=== PATIENT | male | born 1990 | race Caucasian/White ===

== ENCOUNTER 2019-04-02 01:26 | Emergency (ER) | payer BC ==
[2019-04-02 01:51] VITALS: TEMP 98.5; BMI 28.8
[2019-04-02] MEDS ORDERED: DIPHTH,PERTUSS(ACELL),TET 0.5 ML DISP.SYRIN IM ONE (02:09)
--- NOTE | 2019-04-02 02:09 | PDOC ---
History of Present Illness - General Chief Complaint: Laceration Stated Complaint: HAD WENT THROUGH WINDOW History Source: Patient Exam Limitations: No Limitations - History of Present Illness Initial Comments: HPI: 28 y/o male presenting to [facility] ER complaining of heavy bleeding from a laceration to this left thumb. Pt sustained the injury several hours prior to arrival when he punched a glass window while intoxicated. Denies loss of sensation or difficulty moving the thumb. Attempted to control bleeding with direct pressure, but was not successful in stopping the hemorrhage. Does not recall his last tetanus booster. Social Hx: - EtOH: Intoxication this evening - Tobacco: Denies - Street Drugs: Denies Medical Hx: - Denies past medical history. Denies prescription medications. Review of Systems: In addition to that documented in the HPI above, the additional ROS was obtained : Constitutional- Denies fevers or chills ENMT- Denies sore throat CV- Denies chest pain Resp- Denies SOB GI- Denies vomiting or diarrhea Trauma- Per HPI Physical Examination: Vital signs and nursing notes reviewed. Constitutional- Well-developed, well-nourished adult male in no acute distress but obvious discomfort. Found semi-fowlers on hospital bed. Answered all questions appropriately and completely. Head- Normocephalic. No obvious external signs of trauma. Eyes- Sclerae white. Cardiovascular / Chest- Regular rate. Peripheral pulses- radial pulses full. Respiratory- Breathing unlabored. Equal chest rise and fall. Clear to auscultation bilaterally. No stridor, no wheezing, no rhonchi. Neuro- Alert and oriented x4. Moving all four extremities spontaneously. Observed walking through the department unassisted without difficulty. Skin / MSK- Avulsion to the palmar aspect of the left thumb. No exposed bone or obvious foreign body. Small arterial bleed that was not controlled with direct pressure. Intact sensation to tip of the thumb. Able to flex, extend, and oppose the digit without difficulty. Psych- Affect- appropriate. Mood- normal. Speech was non-labored, non- pressured. Past History - Past Medical History Allergies/Adverse Reactions: Allergies Allergy/AdvReac Type Severity Reaction Status Date / Time No Known Allergies Allergy Verified 04/02/19 01:51 Home Medications: Ambulatory Orders Cephalexin Monohydrate [Keflex -] 500 mg PO BID 7 Days #14 capsule 04/02/19 COPD: No - Psycho Social/Smoking Cessation Hx Smoking History: Never smoked *Physical Exam - Vital Signs Last Vital Signs Temp Pulse Resp BP Pulse Ox 36.9 C 77 18 128/73 100 04/02/19 01:49 04/02/19 01:49 04/02/19 01:49 04/02/19 01:49 04/02/19 01:49 ED Treatment Course - RADIOLOGY Radiology Studies Ordered: Category Date Time Status FINGER(S) LEFT [RAD] Stat Radiology 04/02/19 02:08 Ordered Discharge - Discharge Information Problems reviewed: Yes Clinical Impression/Diagnosis: Avulsion of skin of thumb Qualifiers: Encounter type: initial encounter Laterality: left Qualified Code(s): S61.002A - Unspecified open wound of left thumb without damage to nail, initial encounter Condition: Good Disposition: HOME - Admission No - Additional Discharge Information Prescriptions: Cephalexin Monohydrate [Keflex -] 500 mg PO BID 7 Days #14 capsule - Follow up/Referral Referrals: [facility], [facility] [Other] - Patient Discharge Instructions Patient Printed Discharge Instructions: DI for Laceration Repair Steri-Strips, DI for Avulsion Laceration (Not Requiring Sutures) Additional Instructions: You were seen today for a bleeding avulsion to your left thumb after punching a glass wall. The small arterial bleed was closed with a figure of 8 suture. The suture will dissolve on its own. The xray of your finger did not show any glass. Not all glass is visible on xray, so watch for worsening pain over the next few days. The flap will likely fall off over the next few weeks. Keep the area clean, dry , and covered. You should also keep it in the finger splint. You were given a tetanus booster. This is good for 10 years. You can take over the counter Tylenol or Advil as needed for pain. Take as directed on the package insert. Do not exceed the recommended dosage. I have sent a prescription for Keflex to your pharmacy. Take as directed on the package insert. Do not exceed the recommended dosage. Follow up with your primary care doctor in the next 3-4 days. You will need to call to make an appointment. The number is included in this packet. A copy of todays results are attached to this packet. Take it to the appointment so your doctor can review them. You need to follow up with a hand surgeon. [facility] has a walk-in hand clinic every from 1p-4p. It is a first come, first service clinic so expect to arrive early. The address is as follows: [address] [address] The clinic is located in [facility] [address], [address]. Go to the nearest emergency department if your condition worsens or you feel like you need additional emergency evaluation. Print Language: GERMAN - Post Discharge Activity Work/Back to School Note: Back to Work
--- NOTE | 2019-04-02 02:18 | PDOC ---
Attending Attestation - Resident Resident Name: Heath Patel - ED Attending Attestation I have performed the following: I have examined & evaluated the patient, The case was reviewed & discussed with the resident, I agree w/resident's findings & plan - HPI HPI: 04/02/19 02:18 Pt punched a glass and cut his left thumb; now with arteriolar bleed
[2019-04-02] MEDS ORDERED: CEPHALEXIN MONOHYDRATE 500 MG CAPSULE (UD) PO ONE (04:01)
[2019-04-02] MEDS ORDERED: CEPHALEXIN MONOHYDRATE 500 MG CAPSULE (UD) ONE (04:06)
[2019-04-02 04:17] VITALS: BP 127/68; PULSE 84
== END 2019-04-02 04:16 | disposition home or self-care (01) ==
LOC: JER 01:26
PROC: 0HQGXZZ Repair Left Hand Skin, External Approach (ICD-10-PCS; principal; 2019-04-02)
PROC: 3E0234Z Introduction of Serum, Toxoid and Vaccine into Muscle, Percutaneous Approach (ICD-10-PCS; 2019-04-02)
DX: S61.112A Laceration without foreign body of left thumb with damage to nail, initial encounter (principal); W25.XXXA Contact with sharp glass, initial encounter; Y93.89 Activity, other specified; Y92.89 Other specified places as the place of occurrence of the external cause; Y99.8 Other external cause status
CPT/HCPCS: 12001-25; 73140-TC-LT-FY; 90471; 90715; 99284-25

== ENCOUNTER 2020-08-13 10:43 | Emergency (ER) | payer OTHER, BC ==
[2020-08-13 10:51] VITALS: BP 112/58; PULSE 75; TEMP 97.5; BMI 27.3
[2020-08-13] MEDS ORDERED: KETOROLAC TROMETHAMINE 30 MG/1 ML VIAL IM ONE (12:56)
[2020-08-13] MEDS ORDERED: KETOROLAC TROMETHAMINE 30 MG/1 ML VIAL ONE (12:59)
== END 2020-08-13 13:21 | disposition home or self-care (01) ==
LOC: JER 10:43 → JERFT 10:43
PROC: 3E0233Z Introduction of Anti-inflammatory into Muscle, Percutaneous Approach (ICD-10-PCS; principal; 2020-08-13)
DX: S50.01XA Contusion of right elbow, initial encounter (principal); S53.401A Unspecified sprain of right elbow, initial encounter
CPT/HCPCS: 73070-TC-RT-FY; 73090-TC-RT-FY; 99284-25